=== PATIENT | female | born 1945 | race Caucasian/White ===

== ENCOUNTER 2017-03-14 19:39 | Emergency (ER) | payer MEDICARE ==
[~2017-03-14] VITALS: Ht 165.1 cm; Wt 120.0 kg
[~2017-03-14 19:39] MED LIST: ALPRAZOLAM ER0.5 MG PO; AMLOD/BENAZP1 CA5 PO; HYDROCHLORO25 MG/TAB PO; METHYLPRED4 M1; PAROXETINE HCL20 MG PO; PREDNISONE10 MG PO
[2017-03-14] MEDS ORDERED: METOPROL TAR25 MG PO (19:54)
[2017-03-14] MEDS ORDERED: METOPROLOL SUCC50 MG PO (20:04)
[2017-03-14] MEDS ORDERED: OMEPRAZOLE20 M1 PO (20:05)
[2017-03-14] MEDS ORDERED: AMLODIPINE BESYL5 MG PO (20:06)
[2017-03-14] MEDS ORDERED: ESCITALOPRAM OX10 MG PO (20:06)
[2017-03-14] MEDS ORDERED: PERCOCET 5/325M1 TAB PO (22:19)
[2017-03-14 22:40] VITALS: BP 151/84
== END 2017-03-14 22:40 | disposition home or self-care (01) ==
LOC: ED 19:39
DX: S93.402A Sprain of unspecified ligament of left ankle, initial encounter (principal); S93.401A Sprain of unspecified ligament of right ankle, initial encounter; I10 Essential (primary) hypertension; F41.9 Anxiety disorder, unspecified; K21.9 Gastro-esophageal reflux disease without esophagitis; W01.0XXA Fall on same level from slipping, tripping and stumbling without subsequent striking against object, initial encounter; Y92.096 Garden or yard of other non-institutional residence as the place of occurrence of the external cause; Z85.3 Personal history of malignant neoplasm of breast
CPT/HCPCS: L1830